=== PATIENT | female | born 1965 ===

== ENCOUNTER 2017-05-24 17:40 | Emergency (ER) | payer OTHER ==
[2017-05-24 17:40] VITALS: BMI 25.4
[2017-05-24 18:28] VITALS: BP 142/85; PULSE 77; RESP 18; TEMP 98.3; O2SAT 99
--- NOTE | 2017-05-24 19:10 | ED PDOC ---
HPI: Headache Time Seen by Provider: 05/24/17 19:08 Chief Complaint (Nursing): Headache Chief Complaint (Provider): left sided neck pain History Per: Patient (52 y/o female here with left sided neck pain associated with swelling/tenderness since this morning. Notes worsening pain with movement of neck. Denies any fevers/chills. ) Past Medical History Reviewed: Historical Data, Nursing Documentation, Vital Signs Vital Signs: Last Vital Signs Temp 98.3 F 05/24/17 18:24 Pulse 77 05/24/17 18:24 Resp 18 05/24/17 18:24 BP 142/85 05/24/17 18:24 Pulse Ox 99 05/24/17 18:24 - Family History Family History: States: Unknown Family Hx - Home Medications Home Medications: Ambulatory Orders Medication Instructions Recorded Cefadroxil 500 mg PO Q12 01/22/15 Oxycodone HCl/Acetaminophen 1 tab PO Q4 PRN 01/22/15 [Oxycodone HCl-Acetaminophen 325 mg-5 mg] Naproxen 375 mg PO Q8 PRN #21 tablet 05/24/17 diaZEpam [Valium] 5 mg PO Q8 PRN #5 tab 05/24/17 - Allergies Allergies/Adverse Reactions: Allergies Allergy/AdvReac Type Severity Reaction Status Date / Time No Known Allergies Allergy Verified 01/21/13 08:43 Review of Systems ROS Statement: Except As Marked, All Systems Reviewed And Found Negative Physical Exam - Reviewed Nursing Documentation Reviewed: Yes Vital Signs Reviewed: Yes - Physical Exam Appears: Positive for: Well, Non-toxic, No Acute Distress Head Exam: Positive for: ATRAUMATIC, NORMAL INSPECTION, NORMOCEPHALIC Skin: Positive for: Normal Color, Warm, DRY Eye Exam: Positive for: EOMI, Normal appearance, PERRL ENT: Positive for: Normal ENT Inspection Neck: Positive for: Normal (left lateral neck musuclar spasm SCM), Painless ROM Cardiovascular/Chest: Positive for: Regular Rate, Rhythm Respiratory: Positive for: CNT, Normal Breath Sounds Gastrointestinal/Abdominal: Positive for: Normal Exam, Bowel Sounds, Soft Back: Positive for: Normal Inspection Extremity: Positive for: Normal ROM Neurologic/Psych: Positive for: Alert, Oriented - ECG O2 Sat by Pulse Oximetry: 99 - Progress ED Course And Treament: toradol 30 mg IM x 1 dose valium 5 mg x 1 dose Disposition - Clinical Impression Clinical Impression: Neck muscle spasm - Patient ED Disposition Is Patient to be Admitted: No - Disposition Referrals: [facility] [Outside] Disposition: Routine/Home Disposition Time: 19:09 Condition: FAIR Prescriptions: diaZEpam [Valium] 5 mg PO Q8 PRN #5 tab PRN Reason: Muscle Spasm Naproxen 375 mg PO Q8 PRN #21 tablet PRN Reason: Pain, Moderate (4-7) Instructions: Torticollis, Adult Print Language: [place]
== END 2017-05-24 20:30 | disposition home or self-care (01) ==
LOC: H.ER 17:40
DX: M62.838 Other muscle spasm (principal)
CPT/HCPCS: 96372; 99284; J1885